=== PATIENT | male | born 1990 | race Caucasian/White ===

== ENCOUNTER 2024-07-06 05:09 | Day surgery (SDC) | payer MEDICAID ==
[~2024-07-06] VITALS: Ht 182.9 cm; Wt 124.7 kg
[~2024-07-06 05:09] MED LIST: AZIL40TA PO; EMPA10TA PO
[2024-07-06] MEDS ORDERED: LACTATED RINGERS 1,000 ML IV SCH (06:20)
[2024-07-06] MEDS: SODIUM CHLORIDE 0.9% 1,000 ML IV SCH (06:48)
[2024-07-06] MEDS ORDERED: LIDOCAINE HCL 1% 20ML VIAL ONE (07:01)
[2024-07-06] MEDS ORDERED: BUPIVACAINE HCL/PF 0.5% (5MG/ML) 10ML ONE (07:01)
[2024-07-06] MEDS ORDERED: POLYMYXIN B SULFATE 500000 UNITS/VIAL ONE (07:01)
[2024-07-06] MEDS ORDERED: ONDANSETRON HCL 4MG/2ML INJ IV PRN (07:30)
[2024-07-06] MEDS ORDERED: FENTANYL CITRATE/PF 50MCG/ML 2ML VIAL IV PRN (07:30)
[2024-07-06] MEDS ORDERED: HYDROMORPHONE HCL/PF 1MG/ML INJ IV PRN (07:30)
== END 2024-07-06 12:35 | disposition home or self-care (01) ==
LOC: OR 05:09
PROVIDERS: ATTEND Specialist
DX: L72.3 Sebaceous cyst (principal); E66.9 Obesity, unspecified; I10 Essential (primary) hypertension; E11.9 Type 2 diabetes mellitus without complications; E78.5 Hyperlipidemia, unspecified; K21.9 Gastro-esophageal reflux disease without esophagitis; Z79.899 Other long term (current) drug therapy; Z98.890 Other specified postprocedural states; Z68.37 Body mass index [BMI] 37.0-37.9, adult
CPT/HCPCS: 11404; 11403; 12032; 82962; 88304; 93005; J3490 ×3